=== PATIENT | female | born 1965 | race Caucasian/White ===

== ENCOUNTER 2016-08-09 14:15 | Emergency (ER) | payer BC ==
--- NOTE | 2016-08-28 15:43 | ER ---
ADMIT: 08/09/2016 RM/LOC: ER [facility] MR#: [id number] [address] [id number] KATARINA BARROSO Mauricio [address] [place] [id number] Emergency Room Report SEX: F AGE: 51 : 1965 DATE: 08/09/2016 The patient is a 51-year-old female, who developed some chest wall discomfort 7 hours ago. She says she was at work and she does have a very stressful work. When she started feeling her chest discomfort, she points to the center of her chest. REVIEW OF SYSTEMS: Otherwise negative. No headache, no fainting, no diaphoresis. She has a history of hypertension. She has had 2 C-sections in the past. She is a smoker, quarter pack a day. She was given 2 aspirins by friend prior to coming to the emergency room. PHYSICAL EXAMINATION: GENERAL: Very anxious looking female. at bedside. Alert and oriented. VITAL SIGNS: Blood pressure 159/83, with a heart rate of 78, respirations 13, temp is 97.9, and O2 sats 94%. HEENT: Normal inspection. NECK: Supple. No bruit. RESPIRATIONS: No distress. CVS: Tender right chest wall. ABDOMEN: Nontender. SKIN: Good color and turgor and intact. Warm and dry. EXTREMITIES: Nontender. No edema. Oriented x4. Mood and affect appropriate. LABS: EKG borderline T abnormality with rate of 73. WBC 14.4, platelets 464. Hemoglobin and hematocrit within normal limits. Chemistry; glucose 109, GFR 74. H. pylori nonreactive. Troponin 0.015. UA has rbc's 3 and mucus trace. CLINICAL IMPRESSION: Chest wall pain. I contacted Dr. Olson, recommendation for the patient to continue her antianxiety medications in the form of Xanax. Follow up with the PCP. Home, rest. Continue home medications. She was given a GI cocktail in the ER which she stated did not make any difference. MINISTERIO Spears / Sandeep Rivera MD / mago JOB #: [id number] CC: Sandeep Rivera MD, Attending Physician Venice Olson MD, Family Physician
== END 2016-08-09 17:20 | disposition home or self-care (01) ==
LOC: ER 14:15
DX: R07.89 Other chest pain (principal); I10 Essential (primary) hypertension; F17.210 Nicotine dependence, cigarettes, uncomplicated; Z98.890 Other specified postprocedural states; Z79.82 Long term (current) use of aspirin